=== PATIENT | female | born 1955 | race Caucasian/White ===

== ENCOUNTER → 2018-01-13 08:00 | Outpatient (CLI) | payer OTHER, SELFPAY | PROVIDERS: Family Provider Internal Medicine; PCP Internal Medicine | DX: Z23 Encounter for immunization (principal) | CPT/HCPCS: 90471; 90686 ==

== ENCOUNTER → 2018-04-06 12:25 | Outpatient (CLI) | payer OTHER, SELFPAY ==
--- NOTE | 2018-04-06 | DI.MG.S_ITS ---
BILATERAL DIGITAL SCREENING MAMMOGRAM 3D/2D WITH CAD: 04/06/2018 CLINICAL: Routine screening. Comparison is made to exams dated: 10/27/2015 mammogram, 07/13/2015 mammogram, 01/11/2015 mammogram, and 12/27/2014 mammogram - [facility]. The tissue of both breasts is heterogeneously dense. This may lower the sensitivity of mammography. Current study was also evaluated with a Computer Aided Detection (CAD) system. There is a benign biopsy clip in the right breast. No significant masses, calcifications, or other findings are seen in either breast. There has been no significant interval change. IMPRESSION: NEGATIVE There is no mammographic evidence of malignancy. A 1 year screening mammogram is recommended. This exam was interpreted at Station ID: [id number]. NOTE: For mammograms, a report in lay terms will be sent to the patient. Approximately 15% of breast malignancies will not be visualized mammographically. In the management of a palpable breast mass, a negative mammogram must not discourage biopsy of a clinically suspicious lesion. Electronically Signed By: Carlos patel/ramon:04/06/2018 16:11:36 letter sent: Normal Exam ACR BI-RADS Category 1: Negative 3341F
== END ==
PROVIDERS: PCP Internal Medicine; Visit Provider Internal Medicine
DX: Z12.31 Encounter for screening mammogram for malignant neoplasm of breast (principal)
CPT/HCPCS: 77063; 77067

== ENCOUNTER → 2019-11-13 11:07 | Outpatient (CLI) | payer OTHER, SELFPAY ==
--- NOTE | 2019-11-13 | DI.MG.S_ITS ---
BILATERAL DIGITAL SCREENING MAMMOGRAM 3D/2D WITH CAD: 11/13/2019 CLINICAL: Routine screening. Comparison is made to exams dated: 04/06/2018 mammogram, 10/27/2015 mammogram, 07/13/2015 mammogram, 01/11/2015 mammogram, and 12/27/2014 mammogram - [facility]. There are scattered fibroglandular elements in both breasts. Current study was also evaluated with a Computer Aided Detection (CAD) system. There is a possible 0.5 cm irregular low density asymmetry in the left breast posterior depth superior region seen on the mediolateral oblique view only. No other significant masses, calcifications, or other findings are seen in either breast. IMPRESSION: INCOMPLETE: NEEDS ADDITIONAL IMAGING EVALUATION The possible 0.5 cm irregular low density asymmetry in the left breast is indeterminate. Additional views with possible ultrasound are recommended. This exam was interpreted at Station ID: [id number]. NOTE: For mammograms, a report in lay terms will be sent to the patient. Approximately 15% of breast malignancies will not be visualized mammographically. In the management of a palpable breast mass, a negative mammogram must not discourage biopsy of a clinically suspicious lesion. Electronically Signed By: Luis Miguel park/ramon:11/15/2019 08:45:30 letter sent: Additional Imaging Needed ACR BI-RADS Category 0: Incomplete 3340F
== END ==
PROVIDERS: PCP Internal Medicine; Referring Provider Internal Medicine; Visit Provider Internal Medicine
DX: Z12.31 Encounter for screening mammogram for malignant neoplasm of breast (principal)
CPT/HCPCS: 77063; 77067

== ENCOUNTER → 2019-12-29 14:05 | Outpatient (CLI) | payer OTHER, SELFPAY ==
--- NOTE | 2019-12-29 14:18 | DI.MG.S_ITS ---
Patient Name: CHADD SANTANA date: 1955 Sex: F Attending Physician: Silvano Indications: Date: 12/29/2019 14:22 At the request of: ESTRELLA VILLA Procedure: MM special view LT UNILATERAL LEFT DIGITAL DIAGNOSTIC MAMMOGRAM 3D/2D WITH ADDITIONAL VIEWS: 12/29/2019 CLINICAL: Additional evaluation requested from prior study. Comparison is made to exams dated: 11/13/2019 mammogram, 04/06/2018 mammogram, and 10/27/2015 mammogram - [facility]. There are scattered fibroglandular elements in left breast. The asymmetry in the left breast posterior depth superior region seen on the mediolateral oblique view only is not seen in additional views. No other significant masses or calcifications are seen in the breast. IMPRESSION: BENIGN The asymmetry in the left breast seen on the screening mammogram likely respresents superimposed fibroglandular tissue and is benign. There is no mammographic evidence of malignancy. A 1 year screening mammogram is recommended. This exam was interpreted at Station ID: [id number]. NOTE: For mammograms, a report in lay terms will be sent to the patient. Approximately 15% of breast malignancies will not be visualized mammographically. In the management of a palpable breast mass, a negative mammogram must not discourage biopsy of a clinically suspicious lesion. Electronically Signed By: Winnie Traylor M.D. lk/:12/29/2019 14:27:50 letter sent: Normal Exam Continued Report - Page 2 of 2 Patient Name: CHADD SANTANA date: 1955 Sex: F Attending Physician: Silvano Indications: Date: 12/29/2019 14:22 At the request of: ESTRELLA VILLA Procedure: MM special view LT ACR BI-RADS Category 2: Benign Finding(s) 3342F
== END ==
PROVIDERS: PCP Internal Medicine; Referring Provider Internal Medicine; Visit Provider Internal Medicine
DX: R92.8 Other abnormal and inconclusive findings on diagnostic imaging of breast (principal)
CPT/HCPCS: 77065; G0279

== ENCOUNTER → 2020-01-29 09:18 | Outpatient (CLI) | payer OTHER, SELFPAY ==
[2020-01-30 22:38] LABS: COVID19 Sendout Not Detected (Not Detect)
== END ==
PROVIDERS: PCP Internal Medicine; Visit Provider Physician Assistant
DX: Z11.59 Encounter for screening for other viral diseases (principal)
CPT/HCPCS: 87635

== ENCOUNTER → 2021-06-01 08:16 | Outpatient (CLI) | payer OTHER, SELFPAY ==
--- NOTE | 2021-06-01 | DI.MG.S_ITS ---
BILATERAL DIGITAL SCREENING MAMMOGRAM 3D/2D WITH CAD: 06/01/2021 CLINICAL: Routine screening. Comparison is made to exams dated: 12/29/2019 mammogram, 11/13/2019 mammogram, 04/06/2018 mammogram, and 10/27/2015 mammogram - [facility]. There are scattered fibroglandular elements in both breasts. Current study was also evaluated with a Computer Aided Detection (CAD) system. There is a biopsy clip in the right breast. No significant masses, calcifications, or other findings are seen in either breast. There has been no significant interval change. IMPRESSION: NEGATIVE There is no mammographic evidence of malignancy. A 1 year screening mammogram is recommended. This exam was interpreted at Station ID: [id number]. NOTE: For mammograms, a report in lay terms will be sent to the patient. Approximately 15% of breast malignancies will not be visualized mammographically. In the management of a palpable breast mass, a negative mammogram must not discourage biopsy of a clinically suspicious lesion. Electronically Signed By: Carlos patel/ramon:06/01/2021 09:28:19 letter sent: Normal Exam ACR BI-RADS Category 1: Negative 3341F
== END ==
PROVIDERS: PCP Internal Medicine; Referring Provider Internal Medicine; Visit Provider Internal Medicine
DX: Z12.31 Encounter for screening mammogram for malignant neoplasm of breast (principal); M85.851 Other specified disorders of bone density and structure, right thigh; Z78.0 Asymptomatic menopausal state
CPT/HCPCS: 77063; 77067; 77080

== ENCOUNTER → 2022-04-23 09:08 | Outpatient (CLI) | payer OTHER, SELFPAY ==
[2022-04-23 09:42] LABS: COVID19 -Nasal RAPID Negative (Negative)
== END ==
PROVIDERS: PCP Internal Medicine; Visit Provider Surgery
DX: Z01.812 Encounter for preprocedural laboratory examination (principal); Z20.822 Contact with and (suspected) exposure to COVID-19
CPT/HCPCS: 87635

== ENCOUNTER 2022-04-23 09:12 | Day surgery (SDC) | payer OTHER, SELFPAY ==
[2022-04-23 10:00] VITALS: BP 181/80; PULSE 77; RESP 18; TEMP 36.7; O2SAT 100; BMI 24.7
[2022-04-23] MEDS: LACTATED RINGERS 1,000 ML 42 ML IV (10:11)
--- NOTE | 2022-04-23 10:17 | PM.HP.1 ---
History of Present Illness History of Present Illness Date Patient Seen: 04/23/22 Time Patient Seen: 10:17 Chief complaint: SCREENING COLONOSCOPY Narrative: Last colonoscopy approximately 10 years ago. No family history or symptoms concerning for colon cancer Patient History Family & Social History Social History: household members spouse Tobacco & Substance use: Smoking Status Never smoker alcohol intake frequency a few times a week Substance Use Type marijuana Meds Home Medications and Allergies Home Medications Medication Instructions Recorded Confirmed Type loratadine 10 mg tablet (Claritin) 10 mg PO QDAY ##0 07/27/12 04/23/22 History ciclesonide 80 mcg/actuation 1 puff inhalation BID 04/23/22 04/23/22 History aerosol inhaler (Alvesco) Allergies Allergy/AdvReac Type Severity Reaction Status Date / Time streptomycin AdvReac Unknown Unverified 04/23/22 09:58 Review of Systems Review of Systems ROS: Yes All systems reviewed with the patient and are negative except as otherwise documented Exam Vital Signs (past 8 hours): - 04/23/22 10:00 Temperature 98.0 F Pulse Rate 77 Respiratory Rate 18 Blood Pressure 181/80 H Pulse Oximetry 100 Oxygen Delivery Method Room Air Oxygen Delivery Method Room Air Const General: cooperative and healthy appearing Nutritional Appearance: average body habitus HENMT Head: normal to inspection, normocephalic and atraumatic Eyes General: appearance normal, both eyes and all related structures Sclera: sclerae normal Neck Neck: trachea midline Chest Chest: normal inspection of the chest Resp Effort & Inspection: normal respiratory effort and able to speak in complete sentences Cardio Rate: regular rate Rhythm: regular rhythm GI Palpation: soft Skin General: no rashes or lesions noted Neuro General: patient alert, patient awake and patient oriented x3 Psych Appearance: grossly normal Mental Status: mental status grossly normal Judgment: judgment good Assessment & Plan Assessment & Plan narrative: colon cancer screening using colonoscopy under MAC COVID-19 COVID-19 status: Negative Time Spent With Patient Time with patient: less than 30 minutes Critical Care time: I spent a total of [] minutes of critical care time on this patient's care today; this time is exclusive of procedural time.
--- NOTE | 2022-04-23 10:30 | PM.OP.COLON ---
Operative Date/Time/Diagnoses Date of procedure: 04/23/22 Time of procedure: 10:30 Pre-op diagnosis: colon cancer screening Post-op diagnosis: same Procedure & Clinicians Study performed: colonoscopy under MAC Same procedure as scheduled: Yes Indications: colon cancer screening Surgeon: Bailee Rahman Procedure Notes Procedure in detail: Preop diagnosis: Colon cancer screening Postop diagnosis: Same Operative procedure: Colonoscopy under MAC Surgeon: Xiomara Rahman MD Findings: Normal colonoscopy Procedure: Patient placed in lateral position. Rectal exam performed showing normal tone no masses. Scope was inserted into the rectum and advanced to the ileocecal valve with minimal difficulty. Insufflation and extraction of the scope and the above findings. Retroflexion was performed in the rectum. Impression: Normal colonoscopy, no polyps Plan: Repeat colonoscopy in 10 years Specimen(s): none sent Complications: none Post-procedure Recommendations: Colonoscopy in 10 years Follow up: as needed Disposition: PACU
[2022-04-23 10:52] VITALS: BP 183/85; PULSE 64; RESP 10; TEMP 36.7; O2SAT 99
[2022-04-23 10:57] VITALS: BP 177/85; PULSE 61; RESP 9; O2SAT 99
[2022-04-23 11:02] VITALS: BP 160/76; PULSE 61; RESP 9; O2SAT 100
[2022-04-23 11:07] VITALS: BP 169/69; PULSE 65; RESP 14; TEMP 36.6; O2SAT 99
[2022-04-23 11:15] VITALS: BP 162/88; PULSE 79; RESP 18; TEMP 36.6; O2SAT 97
== END 2022-04-23 10:21 | disposition home or self-care (01) ==
PROVIDERS: PCP Internal Medicine; Referring Provider Surgery; Visit Provider Surgery
PROC: 0DJD8ZZ Inspection of Lower Intestinal Tract, Via Natural or Artificial Opening Endoscopic (ICD-10-PCS; CPT 45378; principal; 2022-04-23 10:45)
DX: Z12.11 Encounter for screening for malignant neoplasm of colon (principal); Z20.822 Contact with and (suspected) exposure to COVID-19; Z01.812 Encounter for preprocedural laboratory examination
CPT/HCPCS: 45378; 87635; C9803; J2704

== ENCOUNTER → 2024-01-29 15:05 | Outpatient (CLI) | payer OTHER, SELFPAY ==
--- NOTE | 2024-01-29 | DI.MG.S_ITS ---
BILATERAL DIGITAL SCREENING MAMMOGRAM 3D/2D WITH CAD: 01/29/2024 CLINICAL: Routine screening. Comparison is made to exams dated: 06/01/2021 mammogram, 11/13/2019 mammogram, and 04/06/2018 mammogram - [facility]. There are scattered areas of fibroglandular density (category b / 25%-50% glandular tissue). Current study was also evaluated with a Computer Aided Detection (CAD) system. There is a biopsy clip in the right breast. No significant masses, calcifications, or other findings are seen in either breast. There has been no significant interval change. IMPRESSION: NEGATIVE There is no mammographic evidence of malignancy. A 1 year screening mammogram is recommended. Based on Tyrer-Cuzick model (a risk assessment model), the patient's lifetime risk is 23.5% and her 10 year risk is 13.7%. If a patient has an elevated risk, a more comprehensive evaluation should be considered and/or a referral to a genetic counselor. The [employer], [employer], and NCCN Guidelines advise the consideration of Breast MRI as an adjunct to screening mammography in patients whose Lifetime risk to develop breast cancer is 20% or higher. This exam was interpreted at Station ID: [id number]. NOTE: For mammograms, a report in lay terms will be sent to the patient. Approximately 15% of breast malignancies will not be visualized mammographically. In the management of a palpable breast mass, a negative mammogram must not discourage biopsy of a clinically suspicious lesion. Electronically Signed By: Luis Miguel park/ramon:01/30/2024 07:50:39 letter sent: Normal Exam ACR BI-RADS Category 1: Negative
== END ==
LOC: MAMMO 15:05
PROVIDERS: PCP Internal Medicine; Referring Provider Internal Medicine; Visit Provider Internal Medicine
DX: Z12.31 Encounter for screening mammogram for malignant neoplasm of breast (principal)
CPT/HCPCS: 77063; 77067

== ENCOUNTER → 2025-02-08 11:42 | Outpatient (CLI) | payer OTHER, SELFPAY ==
--- NOTE | 2025-02-08 11:43 | DI.MG.S_ITS ---
MM screening mammo BI: 02/08/2025. BI-RADS: 2 CLINICAL: 69-year old female for bilateral screening mammogram. Tyrer-Cuzick lifetime risk of 3.5%. No personal or first-degree family history of breast cancer. The patient had a prior right breast biopsy. PRIOR EXAMS: 01/29/2024, 06/01/2021, 12/29/2019, 11/13/2019, 04/06/2018, 10/27/2015, 07/13/2015, 01/11/2015, 12/27/2014. MAMMOGRAPHY TECHNIQUE: 2D and 3D (tomosynthesis) digital mammographic views obtained, with additional images as needed for full coverage. Current study was also evaluated with a Computer Aided Detection (CAD) system. DENSITY B. There are scattered areas of fibroglandular density. MAMMOGRAPHY FINDINGS Right: Biopsy marker present on the right. There are no suspicious masses, calcifications, or other findings in the breast. Left: No suspicious mass, asymmetry, microcalcification, or other abnormality seen. IMPRESSION: Right * No evidence of malignancy with benign findings. Left * No evidence of malignancy. RECOMMENDATIONS Bilateral * Annual screening mammography. OVERALL ASSESSMENT CATEGORY BI-RADS-2: Benign. The [employer] recommends annual screening mammography beginning at age 40 for women with average risk of breast cancer. ELECTRONICALLY SIGNED: Elin Mena M.D. on 02/09/2025 at 09:15:23 AM PT Interpreting Station ID: [id number]
== END ==
LOC: MAMMO 11:43
PROVIDERS: PCP Internal Medicine; Referring Provider Internal Medicine; Visit Provider Internal Medicine
DX: Z12.31 Encounter for screening mammogram for malignant neoplasm of breast (principal)
CPT/HCPCS: 77063; 77067